=== PATIENT | female | born 1990 | race Caucasian/White ===

== ENCOUNTER 2018-03-03 08:53 | Inpatient (IN) ==
[2018-03-03 09:51] LABS: Baso # (Auto) 0.1 th/mm3 (0.0-0.2); Bilirubin,Urine Negative (Negative); Clarity,Urine Clear (Clear); Color,Urine Yellow (Yellw/Straw); Eos # (Auto) 0.1 th/mm3 (0.0-0.4); Eos % (Auto) 1.1 % (0.0-4.0); Glucose,Urine (UA) 50 mg/dL (Negative); Hematocrit 46.8 % (35.0-46.0); Leukocyte Esterase,Urine Negative (Negative); Lymph # (Auto) 1.7 th/mm3 (1.0-4.8); Lymph % (Auto) 25.3 % (9.0-44.0); Mean Corpuscular HGB Conc 34.2 % (32.0-36.0); Mean Corpuscular Hemoglobin 29.9 pg (27.0-34.0); Mean Corpuscular Volume 87.3 fL (80.0-100.0); Mean Platelet Volume 7.3 fL (7.0-11.0); Mono # (Auto) 0.3 th/mm3 (0.0-0.9); Mono % (Auto) 4.9 % (0.0-8.0); Neut # (Auto) 4.5 th/mm3 (1.8-7.7); Neut % (Auto) 67.7 % (16.0-70.0); Nitrite,Urine Negative (Negative); Platelet Count 394 th/mm3 (150-450); Red Blood Count 5.36 mil/mm3 (4.00-5.30); Red Cell Distribution Width 13.6 % (11.6-17.2); Specific Gravity,Urine 1.013 (1.002-1.035); Squamous Epithelial Cell,Urine 1 /hpf (0-5); White Blood Count 6.6 th/mm3 (4.0-11.0)
[2018-03-03 09:58] LABS: Amphetamine Screen,Urine Neg (Neg); Barbiturate Screen,Urine Neg (Neg); Cannabinoid Screen,Urine Neg (Neg); Cocaine Screen,Urine Neg (Neg)
[2018-03-03 09:59] LABS: Opiate Screen,Urine Neg (Neg)
[2018-03-03] MEDS ORDERED: Sod Chloride 0.9% Inj 1,000 ML IV.SIG ONE (10:12)
--- NOTE | 2018-03-03 10:18 | ED ---
HPI General Chief Complaint: Altered Mental Status Stated Complaint: ETOH Time Seen by Provider: 03/03/18 10:08 History of Present Illness HPI narrative: The patient was seen and examined in the presence of the nurse. This patient is brought in by her mother. The patient is an alcoholic with PTSD and anxiety problems. She expressed suicidal thoughts to her sister last night and then tried to drink herself to . The mother found her this morning minimally responsive. Mother is a nurse and is requesting and begging that I Randall act her for her own good so she can get some help. Symptoms are severe. The patient herself cannot provide any history or review of systems. She is too intoxicated at this point. Mother reports that she does not use drugs and is self. She had been clean for 7 months up until recently. There is a DCF case pending and her child has been taken away and the mother is caring for the child now. Related Data Home Medications Medication Instructions Recorded Confirmed levothyroxine [Synthroid] 100 mcg PO DAILY 02/08/18 02/08/18 Allergies Allergy/AdvReac Type Severity Reaction Status Date / Time latex Allergy Mild rash Verified 02/08/18 00:38 Sulfa (Sulfonamide Allergy Mild Migraine Verified 02/08/18 00:38 Antibiotics) nitrofurantoin Allergy Migraine Verified 02/08/18 00:38 [From Macrobid] Review of Systems ROS Unobtainable unobtainable due to mental condition and unobtainable due to mental status PMFSH Social History Social History Substance History: Unable to Obtain Second Hand Smoke Exposure: No Smoking Status: Cognitive impairment How Often Do You Have a Drink Containing Alcohol: Unable to Obtain Recent Travel in [facility] within the Last 8 Weeks: No Recent Out of Country Travel within the Last 8 Weeks: No Immunization History Tetanus Immunization: Unable to Assess Hx Influenza Vaccine This Season: Unable to Assess Exam Narrative Exam Narrative: GENERAL: Thin well-nourished, well-developed patient who has limited responsiveness . SKIN: Focused skin assessment reveals no rash and nodules. Skin is Warm and dry. HEAD: Atraumatic. Normocephalic. EYES: Pupils equal and round. No scleral icterus. No injection or drainage. ENT: No nasal bleeding or discharge. Mucous membranes pink and moist. Normal gag reflex. She is controlling airway. NECK: Trachea midline. No JVD. CARDIOVASCULAR: Regular rate and rhythm. No murmur appreciated. RESPIRATORY: No accessory muscle use. Clear to auscultation. Breath sounds equal bilaterally. GASTROINTESTINAL: Abdomen soft, non-tender, nondistended. Hepatic and splenic margins not palpable. MUSCULOSKELETAL: No obvious deformities. No clubbing. No cyanosis. No edema. NEUROLOGICAL: Awake but very obtunded. She looks around but is not follow commands. No obvious cranial nerve deficits. Impossible to accurately test motor strength or sensation. Nonverbal PSYCHIATRIC: Impossible to assess mood and affect; insight and judgment poor. Course Initial Documented Vital Signs Temperature 98.5 F 03/03/18 08:57 Pulse Rate 87 03/03/18 08:57 Respiratory Rate 18 03/03/18 08:57 Blood Pressure 120/86 03/03/18 08:57 Pulse Oximetry 98 03/03/18 08:57 Last Documented Vital Signs Temperature 98.5 F 03/03/18 08:57 Pulse Rate 94 H 03/03/18 11:52 Respiratory Rate 18 03/03/18 11:52 Blood Pressure 123/84 03/03/18 11:52 Pulse Oximetry 99 03/03/18 11:52 Critical Care Time Critical Care Time: Yes Total Critical Care Time: 35 Attestation: Aggregate critical care time was 35 minutes. Time to perform other separately billable procedures was not included in the critical care time. My time did not include minutes spent treating any other patients simultaneously or on activities that did not directly contribute to the patient's treatment. The services I provided to this patient were to treat and/or prevent clinically significant deterioration that could result in: Cardiac arrhythmia, cardiopulmonary arrest I provided critical care services requiring my management, as noted below: Chart data review, documentation time, medication orders and management, vital sign assessments/reviewing monitor data, ordering and reviewing lab tests, ordering and interpreting/reviewing x-rays and diagnostic studies, care of the patient and discussion of the patient with the admitting physicians. Medical Decision Making MDM Narrative Medical decision making narrative: IV placed and labs sent. I gave her a liter of saline IV bolus. I did place her under Randall act after lengthy discussion with mother. This does seem to be the best opportunity for to get some help. Psych screen has been ordered. Patient labs have come back. There many critical findings and she is very metabolically deranged. She has critical hyper natremia and critical hypokalemia. I have given her normal saline replacement and IV potassium replacement. I was planning on placing NG tube to put more liquid potassium down the tube but she is woken up a bit and that is going to be a challenge as she is very resistant to it. She was able to drink it without aspirating. So she has had oral replacement and IV replacement of potassium is ongoing. She will require medical admission to telemetry. I reviewed with the hospitalist She will get psychiatric consultation under Randall act. Differential Diagnosis Differential Diagnosis: Alcohol intoxication, intentional suicide attempt, depression Medical Records Medical records reviewed: Yes I reviewed the patient's medical records. Her last visit here was 2014 for alcohol intoxication Lab Data Result diagrams: 03/03/18 09:15 03/03/18 09:15 Lab Results 03/03/18 03/03/18 03/03/18 Range/Units 09:15 09:15 09:15 WBC 6.6 (4.0-11.0) th/mm3 RBC 5.36 H (4.00-5.30) mil/mm3 Hgb 16.0 H (11.6-15.3) gm/dL Hct 46.8 H (35.0-46.0) % MCV 87.3 (80.0-100.0) fL MCH 29.9 (27.0-34.0) pg MCHC 34.2 (32.0-36.0) % RDW 13.6 (11.6-17.2) % Plt Count 394 (150-450) th/mm3 MPV 7.3 (7.0-11.0) fL Neut % (Auto) 67.7 (16.0-70.0) % Lymph % (Auto) 25.3 (9.0-44.0) % [place] % (Auto) 4.9 (0.0-8.0) % Eos % (Auto) 1.1 (0.0-4.0) % Baso % (Auto) 1.0 (0.0-2.0) % Neut # (Auto) 4.5 (1.8-7.7) th/mm3 Lymph # (Auto) 1.7 (1.0-4.8) th/mm3 [place] # (Auto) 0.3 (0.0-0.9) th/mm3 Eos # (Auto) 0.1 (0.0-0.4) th/mm3 Baso # (Auto) 0.1 (0.0-0.2) th/mm3 WBC Differential . Differential Comment Auto diff final Puncture Site Patient Temperature O2 Saturation (90-100) % ABG pH (7.380-7.420) ABG pCO2 (38-42) mmHg ABG pO2 (61-120) mmHg ABG HCO3 (22-26) mmol/L ABG O2 Content (12.0-20.0) Vol % ABG Base Excess (-2-2) mmol/L ABG Methemoglobin (0-2) % José Miguel Test Hemoglobin (12.0-16.0) G/DL Carboxyhemoglobin (0-4) % O2 Delivery Device Inspired O2 % Critical Value Sodium 155 H (136-145) meq/L Potassium 1.6 L* (3.5-5.1) meq/L Chloride 128 H (98-107) meq/L Carbon Dioxide 17.5 L (21.0-32.0) meq/L Anion Gap 10 (5-15) meq/L BUN 8 (7-18) mg/dL Creatinine 0.20 L (0.50-1.00) mg/dL Estimated GFR Greater than 89 (>89) mL/min Random Glucose 57 L (74-106) mg/dL Calcium Less than 5.0 L* (8.5-10.1) mg/dL Prot Corrected Calcium 6.5 L* (8.5-10.1) mg/dL Total Bilirubin 0.2 (0.2-1.0) mg/dL AST 14 L (15-37) U/L ALT 17 (10-53) U/L Alkaline Phosphatase 36 L (45-117) U/L Total Protein 3.6 L (6.4-8.2) g/dL Albumin 1.9 L (3.4-5.0) g/dL Urine Color (Yellw/Straw) Urine Clarity (Clear) Urine pH (5.0-8.5) Ur Specific [place] (1.002-1.035) Urine Protein (Neg-Trace) mg/dL Urine Glucose (UA) (Negative) mg/dL Urine Ketones (Negative) mg/dL Urine Occult Blood (Negative) Urine Nitrate (Negative) Urine Bilirubin (Negative) Urine Urobilinogen (Less than 2) mg/dL Ur Leukocyte Esterase (Negative) Urine RBC (0-3) /hpf Urine WBC (0-5) /hpf Ur Squamous Epith Cells (0-5) /hpf Micro UA Comment Urine Culture Comments Salicylates (2.8-20.0) mg/dL Urine Opiates Screen Neg (Neg) Acetaminophen (10.0-30.0) mcg/mL Ur Barbiturates Screen Neg (Neg) Ur Amphetamines Screen Neg (Neg) U Benzodiazepines Scrn Neg (Neg) Urine Cocaine Screen Neg (Neg) U Cannabinoids Screen Neg (Neg) Serum Alcohol 296 H (0-5) mg/dL 03/03/18 03/03/18 03/03/18 Range/Units 09:15 09:15 09:15 WBC (4.0-11.0) th/mm3 RBC (4.00-5.30) mil/mm3 Hgb (11.6-15.3) gm/dL Hct (35.0-46.0) % MCV (80.0-100.0) fL MCH (27.0-34.0) pg MCHC (32.0-36.0) % RDW (11.6-17.2) % Plt Count (150-450) th/mm3 MPV (7.0-11.0) fL Neut % (Auto) (16.0-70.0) % Lymph % (Auto) (9.0-44.0) % [place] % (Auto) (0.0-8.0) % Eos % (Auto) (0.0-4.0) % Baso % (Auto) (0.0-2.0) % Neut # (Auto) (1.8-7.7) th/mm3 Lymph # (Auto) (1.0-4.8) th/mm3 [place] # (Auto) (0.0-0.9) th/mm3 Eos # (Auto) (0.0-0.4) th/mm3 Baso # (Auto) (0.0-0.2) th/mm3 WBC Differential Differential Comment Puncture Site Patient Temperature O2 Saturation (90-100) % ABG pH (7.380-7.420) ABG pCO2 (38-42) mmHg ABG pO2 (61-120) mmHg ABG HCO3 (22-26) mmol/L ABG O2 Content (12.0-20.0) Vol % ABG Base Excess (-2-2) mmol/L ABG Methemoglobin (0-2) % José Miguel Test Hemoglobin (12.0-16.0) G/DL Carboxyhemoglobin (0-4) % O2 Delivery Device Inspired O2 % Critical Value Sodium (136-145) meq/L Potassium (3.5-5.1) meq/L Chloride (98-107) meq/L Carbon Dioxide (21.0-32.0) meq/L Anion Gap (5-15) meq/L BUN (7-18) mg/dL Creatinine (0.50-1.00) mg/dL Estimated GFR (>89) mL/min Random Glucose (74-106) mg/dL Calcium (8.5-10.1) mg/dL Prot Corrected Calcium (8.5-10.1) mg/dL Total Bilirubin (0.2-1.0) mg/dL AST (15-37) U/L ALT (10-53) U/L Alkaline Phosphatase (45-117) U/L Total Protein (6.4-8.2) g/dL Albumin (3.4-5.0) g/dL Urine Color Yellow (Yellw/Straw) Urine Clarity Clear (Clear) Urine pH 6.0 (5.0-8.5) Ur Specific [place] 1.013 (1.002-1.035) Urine Protein Negative (Neg-Trace) mg/dL Urine Glucose (UA) 50 (Negative) mg/dL Urine Ketones Negative (Negative) mg/dL Urine Occult Blood Moderate H (Negative) Urine Nitrate Negative (Negative) Urine Bilirubin Negative (Negative) Urine Urobilinogen Less than 2 (Less than 2) mg/dL Ur Leukocyte Esterase Negative (Negative) Urine RBC 2 (0-3) /hpf Urine WBC 1 (0-5) /hpf Ur Squamous Epith Cells 1 (0-5) /hpf Micro UA Comment Cath-culture not ind Urine Culture Comments Cath-cult not ind Salicylates Less than 1.7 L (2.8-20.0) mg/dL Urine Opiates Screen (Neg) Acetaminophen 8.2 L (10.0-30.0) mcg/mL Ur Barbiturates Screen (Neg) Ur Amphetamines Screen (Neg) U Benzodiazepines Scrn (Neg) Urine Cocaine Screen (Neg) U Cannabinoids Screen (Neg) Serum Alcohol (0-5) mg/dL 03/03/18 Range/Units 11:59 WBC (4.0-11.0) th/mm3 RBC (4.00-5.30) mil/mm3 Hgb (11.6-15.3) gm/dL Hct (35.0-46.0) % MCV (80.0-100.0) fL MCH (27.0-34.0) pg MCHC (32.0-36.0) % RDW (11.6-17.2) % Plt Count (150-450) th/mm3 MPV (7.0-11.0) fL Neut % (Auto) (16.0-70.0) % Lymph % (Auto) (9.0-44.0) % [place] % (Auto) (0.0-8.0) % Eos % (Auto) (0.0-4.0) % Baso % (Auto) (0.0-2.0) % Neut # (Auto) (1.8-7.7) th/mm3 Lymph # (Auto) (1.0-4.8) th/mm3 [place] # (Auto) (0.0-0.9) th/mm3 Eos # (Auto) (0.0-0.4) th/mm3 Baso # (Auto) (0.0-0.2) th/mm3 WBC Differential Differential Comment Puncture Site Right radial Patient Temperature 98.6 O2 Saturation 95 (90-100) % ABG pH 7.43 H (7.380-7.420) ABG pCO2 41 (38-42) mmHg ABG pO2 92 (61-120) mmHg ABG HCO3 26 (22-26) mmol/L ABG O2 Content 21.0 H (12.0-20.0) Vol % ABG Base Excess 2.1 H (-2-2) mmol/L ABG Methemoglobin 0.7 (0-2) % José Miguel Test Present Hemoglobin 15.8 (12.0-16.0) G/DL Carboxyhemoglobin 1.3 (0-4) % O2 Delivery Device Room air Inspired O2 21 % Critical Value No Sodium (136-145) meq/L Potassium (3.5-5.1) meq/L Chloride (98-107) meq/L Carbon Dioxide (21.0-32.0) meq/L Anion Gap (5-15) meq/L BUN (7-18) mg/dL Creatinine (0.50-1.00) mg/dL Estimated GFR (>89) mL/min Random Glucose (74-106) mg/dL Calcium (8.5-10.1) mg/dL Prot Corrected Calcium (8.5-10.1) mg/dL Total Bilirubin (0.2-1.0) mg/dL AST (15-37) U/L ALT (10-53) U/L Alkaline Phosphatase (45-117) U/L Total Protein (6.4-8.2) g/dL Albumin (3.4-5.0) g/dL Urine Color (Yellw/Straw) Urine Clarity (Clear) Urine pH (5.0-8.5) Ur Specific [place] (1.002-1.035) Urine Protein (Neg-Trace) mg/dL Urine Glucose (UA) (Negative) mg/dL Urine Ketones (Negative) mg/dL Urine Occult Blood (Negative) Urine Nitrate (Negative) Urine Bilirubin (Negative) Urine Urobilinogen (Less than 2) mg/dL Ur Leukocyte Esterase (Negative) Urine RBC (0-3) /hpf Urine WBC (0-5) /hpf Ur Squamous Epith Cells (0-5) /hpf Micro UA Comment Urine Culture Comments Salicylates (2.8-20.0) mg/dL Urine Opiates Screen (Neg) Acetaminophen (10.0-30.0) mcg/mL Ur Barbiturates Screen (Neg) Ur Amphetamines Screen (Neg) U Benzodiazepines Scrn (Neg) Urine Cocaine Screen (Neg) U Cannabinoids Screen (Neg) Serum Alcohol (0-5) mg/dL Discharge Plan Discharge Disposition Patient Disposition: 30 Still Patient Discharge Details Diagnosis: Hypokalemia, Acute hypernatremia, Depression with suicidal ideation Physicians Team ED Provider: Lan Olson Primary Care Provider: Primary Care [place],No Other Providers: Ney Jackson Rxs /Orders / Referrals /Forms Prescriptions: No Action levothyroxine [Synthroid] 100 mcg Tablet 100 mcg PO DAILY RF: 0 Discharge Interventions Interventions: Vital Signs Last Done: 03/03/18 11:52 Status ED Status: With Doctor
[2018-03-03 10:30] LABS: Alanine Aminotransferase 17 U/L (10-53); Albumin 1.9 g/dL (3.4-5.0); Alkaline Phosphatase 36 U/L (45-117); Anion Gap 10 meq/L (5-15); Aspartate Aminotransferase 14 U/L (15-37); Blood Urea Nitrogen 8 mg/dL (7-18); Carbon Dioxide 17.5 meq/L (21.0-32.0); Chloride 128 meq/L (98-107); Glomerular Filtration Rate Greater Than 89 mL/min (>89); Glucose,Random 57 mg/dL (74-106); Sodium 155 meq/L (136-145); Total Protein 3.6 g/dL (6.4-8.2)
[2018-03-03 10:46] LABS: Alcohol 296 mg/dL (0-5); Potassium 1.6 meq/L (3.5-5.1)
[2018-03-03] MEDS ORDERED: Potassium Chloride 25 MEQ Effervescent Tablet NG/OG ONE (10:47)
[2018-03-03] MEDS ORDERED: Calcium Chloride Inj 1 GM/10 ML Syringe IV.PUSH ONE (11:21)
[2018-03-03 12:12] LABS: ABG Base Excess 2.1 mmol/L (-2-2); ABG PCO2 41 mmHg (38-42); ABG PO2 92 mmHg (61-120)
[2018-03-03] MEDS ORDERED: LORazepam 1 MG Tablet PO PRN (13:08)
[2018-03-03] MEDS ORDERED: Calcium Chloride Inj 1 GM in Sodium Chlor 0.9% Inj 100 ML IV.SIG ONE (14:00)
--- NOTE | 2018-03-03 16:12 | P.HPIM ---
History of Present Illness Primary Care Physician: No Primary Care Physician Chief Complaint: Binge drinking History of Present Illness: The patient is a 27-year-old female with a past medical history of anxiety and depression who is presenting to the hospital following an episode of binge drinking. The patient's mother found her daughter to be altered and brought her into the hospital for further evaluation. The patient says that yesterday her sister's try to force himself on her. She was able to stop that from happening. She said that she started drinking in response to that. She says she had 10 shots of 99 proof alcohol. She denied drinking anything else. She denied taking any other substances. She says she was drinking at home. She has a son who was with her mother at the time. Apparently the patient told her sister that she was going to kill herself. The patient denies being serious about it. She says she is not crazy. She denies any prior suicidal ideation or attempts. She states she has had alcohol withdrawal before in the past. She says she is a binge drinker but not a daily drinker. She does endorse palpitations from time to time. She is currently nauseous and not hungry. Inpatient Certification: I certify that the inpatient services were ordered in accordance with Medicare regulations governing the order. This includes certification that hospital inpatient services are reasonable and necessary and in the case of services not specified as inpatient-only under 42 CFR 419.22(n), that they are appropriately provided as inpatient services in accordance to with the 2-midnight benchmark under 43 CFR 412.3(e) Estimated Total Length of Stay (Days): 2 Plans for Post Hospital Care: Not yet determined Review of Systems All other systems reviewed negative except as stated in HPI [facility] / [facility] - History History Provided By: Air Plant Engineer / EMT - Medical History Medical History: Medical History (Last Updated 03/03/18 @ 16:02 by Juaquin Reyes DO) [place] teeth extracted Anxiety Depression Hypothyroid - Family History Family History: Family History (Last Updated 03/03/18 @ 16:02 by Juaquin Reyes DO) Other Atrial fibrillation - Tobacco History Second Hand Smoke Exposure: No Smoking Status: Never smoker - Alcohol History How Often Do You Have a Drink Containing Alcohol: 2 to 3 times a week - Substance Use History Substance History: No History of Abuse - Travel History Recent Travel in the [facility] Within the Last 8 Weeks: No Recent Travel Out of the Country Within the Last 8 Weeks: No - Immunization History Tetanus Immunization: Unable to Assess Hx Influenza Vaccine This Season: Unable to Assess Medications and Allergies Active Medications: Active Medications Flumazenil (Romazecon Inj) 0.2 mg IV.PUSH Q1M PRN PRN Reason: OVERSEDATION Potassium Chloride 40 meq/ (Dextrose) 1,020 mls @ 125 mls/hr IV.CONT .Q8H10M [place] Lorazepam (Ativan) 1 mg PO Q4H PRN PRN Reason: for CIWA 8-10 Lorazepam (Ativan) 2 mg PO Q2H PRN PRN Reason: for CIWA 11-14 Lorazepam (Ativan Inj) 2 mg IV.PUSH Q1H PRN PRN Reason: for CIWA 15-20 Lorazepam (Ativan Inj) 2 mg IV.PUSH Q15M PRN PRN Reason: for CIWA > 20 Metoclopramide HCl (Reglan Inj) 5 mg IV.PUSH Q8HR PRN; Protocol PRN Reason: n/v Last Admin: 03/03/18 14:57 Dose: 5 mg Ondansetron HCl (Zofran Odt) 4 mg PO Q6H PRN PRN Reason: BREAKTHROUGH NAUSEA Allergies Allergy/AdvReac Type Severity Reaction Status Date / Time latex Allergy Mild rash Verified 02/08/18 00:38 Sulfa (Sulfonamide Allergy Mild Migraine Verified 02/08/18 00:38 Antibiotics) nitrofurantoin Allergy Migraine Verified 02/08/18 00:38 [From Macrobid] Home Medications Medication Instructions Recorded Confirmed Type levothyroxine [Synthroid] 100 mcg PO DAILY 02/08/18 02/08/18 History Exam Vital signs: Vital Signs 03/03/18 08:57 03/03/18 09:02 03/03/18 09:06 Temperature 98.5 F Pulse Rate 87 101 H 98 H Respiratory Rate 18 16 Blood Pressure 120/86 132/88 Pulse Oximetry 98 97 99 03/03/18 11:52 Temperature Pulse Rate 94 H Respiratory Rate 18 Blood Pressure 123/84 Pulse Oximetry 99 Intake & Output 03/02/18 03/03/18 03/03/18 18:59 06:59 18:59 Weight 52.163 kg Narrative: GENERAL: Thin well-nourished, well-developed patient in no apparent distress. SKIN: Warm and dry. HEAD: Atraumatic. Normocephalic. EYES: Pupils equal and round. No scleral icterus. No injection or drainage. ENT: No nasal bleeding or discharge. Mucous membranes pink and moist. NECK: Trachea midline. No JVD. CARDIOVASCULAR: Regular rate and rhythm. No murmur appreciated. RESPIRATORY: No accessory muscle use. Clear to auscultation. Breath sounds equal bilaterally. GASTROINTESTINAL: Abdomen soft, non-tender, nondistended. Hepatic and splenic margins not palpable. MUSCULOSKELETAL: No obvious deformities. No clubbing. No cyanosis. No edema. NEUROLOGICAL: Awake and alert. No gross deficits. Results - Labs CBC & Chem 7: 03/03/18 09:15 03/03/18 09:15 Labs: Short CBC 03/03/18 Range/Units 09:15 WBC 6.6 (4.0-11.0) th/mm3 Hgb 16.0 H (11.6-15.3) gm/dL Hct 46.8 H (35.0-46.0) % Plt Count 394 (150-450) th/mm3 BMP 03/03/18 09:15 Sodium 155 H Potassium 1.6 L* Chloride 128 H Carbon Dioxide 17.5 L BUN 8 Creatinine 0.20 L Calcium Less than 5.0 L* Liver Function 03/03/18 Range/Units 09:15 Total Bilirubin 0.2 (0.2-1.0) mg/dL AST 14 L (15-37) U/L ALT 17 (10-53) U/L Alkaline Phosphatase 36 L (45-117) U/L Albumin 1.9 L (3.4-5.0) g/dL Urine 03/03/18 Range/Units 09:15 Urine Color Yellow (Yellw/Straw) Urine Clarity Clear (Clear) Urine pH 6.0 (5.0-8.5) Ur Specific [place] 1.013 (1.002-1.035) Urine Protein Negative (Neg-Trace) mg/dL Urine Glucose (UA) 50 (Negative) mg/dL Caprini VTE Risk Assessment Caprini VTE Risk Assessment: Moderate/High Risk (score >= 2) Caprini Risk Assessment Model: Point Value = 1 Point Value = 2 Point Value = 3 Point Value = 5 Age 41-60 Minor surgery BMI > 25 kg/m2 Swollen legs Varicose veins or History of unexplained or recurrent spontaneous Oral contraceptives or hormone replacement Sepsis (< 1 month) Serious lung disease, including pneumonia (< 1 month) Abnormal pulmonary function Acute myocardial infarction Congestive heart failure (< 1 month) History of inflammatory bowel disease Medical patient at bed rest Age 61-74 Arthroscopic surgery Major open surgery (> 45 min) Laparoscopic surgery (> 45 min) Malignancy Confined to bed (> 72 hours) Immobilizing plaster cast Central venous access Age >= 75 History of VTE Family history of VTE Factor V Leiden Prothrombin [id number] Lupus anticoagulant Anticardiolipin antibodies Elevated serum homocysteine Heparin-induced thrombocytopenia Other congenital or acquired thrombophilia Stroke (< 1 month) Elective arthroplasty Hip, pelvis, or leg fracture Acute spinal cord injury (< 1 month) Prophylaxis Regimen: Total Risk Factor Score Risk Level Prophylaxis Regimen 0-1 Low Early ambulation 2 Moderate Order ONE of the following: *Sequential Compression Device (SCD) *Heparin 5000 units SQ BID 3-4 Higher Order ONE of the following medications: *Heparin 5000 units SQ TID *Enoxaparin/Lovenox 40 mg SQ daily (WT < 150 kg, CrCl > 30 mL/min) *Enoxaparin/Lovenox 30 mg SQ daily (WT < 150 kg, CrCl > 10-29 mL/min) *Enoxaparin/Lovenox 30 mg SQ BID (WT < 150 kg, CrCl > 30 mL/min) AND/OR *Sequential Compression Device (SCD) 5 or more Highest Order ONE of the following medications: *Heparin 5000 units SQ TID (Preferred with Epidurals) *Enoxaparin/Lovenox 40 mg SQ daily (WT < 150 kg, CrCl > 30 mL/min) *Enoxaparin/Lovenox 30 mg SQ daily (WT < 150 kg, CrCl > 10-29 mL/min) *Enoxaparin/Lovenox 30 mg SQ BID (WT < 150 kg, CrCl > 30 mL/min) AND *Sequential Compression Device (SCD) Assessment and Plan - Plan Alcohol abuse The pt states that she binge drinks from time to time. She has a history of alcohol withdrawal. -CIWA protocol. -Cessation instruction. -Seizure precautions. -Case management consult. Suicidal ideation The pt's mother was concerned that the pt was drinking herself to . The pt also told her sister that she was suicidal. The pt was Prakash Acted in the ED. -Psychiatry consult pending. -Hold home Wellbutrin for now. Severe electrolyte derangements S/t above. Potassium was 1.6 on admission. She received IV and PO repletion in the ED. -D5W with KCl. -Calcium chloride IV. -Check mg and phos levels. -Follow BMP. -Telemetry. Polycythemia Likely s/t dehydration. -IVFs and monitor. Hypothyroidism On levothyroxine as an outpt. -Resume levothyroxine. -Check TSH. PPx: SCDs
--- NOTE | 2018-03-03 21:28 | ECG ---
Date Performed: 03/03/2018 Time Performed: 10:56:49 PTAGE: 27 years EKG: Sinus rhythm NORMAL ECG NO PREVIOUS TRACING DOCTOR: Jorge Lund Interpretating Date/Time 03/03/2018 21:27:04
[2018-03-04 00:47] LABS: Anion Gap 12 meq/L (5-15); Blood Urea Nitrogen 10 mg/dL (7-18); Carbon Dioxide 21.2 meq/L (21.0-32.0); Chloride 105 meq/L (98-107); Glomerular Filtration Rate Greater Than 89 mL/min (>89); Glucose,Random 93 mg/dL (74-106); Magnesium 1.3 mg/dL (1.5-2.5); Phosphorus 2.8 mg/dL (2.5-4.9); Potassium 3.8 meq/L (3.5-5.1); Sodium 138 meq/L (136-145)
[2018-03-04] MEDS: Potassium Chloride Inj 40 MEQ in Dextrose 5% in Water Inj 1,000 ML IV.CONT SCH ×4 (03:09)
[2018-03-04 07:20] LABS: Baso # (Auto) 0.1 th/mm3 (0.0-0.2); Baso % (Auto) 0.7 % (0.0-2.0); Eos # (Auto) 0.1 th/mm3 (0.0-0.4); Eos % (Auto) 0.6 % (0.0-4.0); Hematocrit 37.4 % (35.0-46.0); Hemoglobin 13.1 gm/dL (11.6-15.3); Lymph # (Auto) 0.9 th/mm3 (1.0-4.8); Lymph % (Auto) 10.4 % (9.0-44.0); Mean Corpuscular Hemoglobin 30.4 pg (27.0-34.0); Mean Corpuscular Volume 86.8 fL (80.0-100.0); Mean Platelet Volume 7.5 fL (7.0-11.0); Mono # (Auto) 0.5 th/mm3 (0.0-0.9); Mono % (Auto) 5.5 % (0.0-8.0); Neut # (Auto) 7.3 th/mm3 (1.8-7.7); Neut % (Auto) 82.8 % (16.0-70.0); Platelet Count 296 th/mm3 (150-450); Red Blood Count 4.31 mil/mm3 (4.00-5.30); Red Cell Distribution Width 13.3 % (11.6-17.2); White Blood Count 8.9 th/mm3 (4.0-11.0)
[2018-03-04 07:26] LABS: INR 1.1 Ratio; Prothrombin Time 11.4 sec (9.8-11.6)
[2018-03-04 08:16] LABS: Alanine Aminotransferase 27 U/L (10-53); Albumin 3.6 g/dL (3.4-5.0); Alkaline Phosphatase 67 U/L (45-117); Anion Gap 10 meq/L (5-15); Aspartate Aminotransferase 22 U/L (15-37); Blood Urea Nitrogen 10 mg/dL (7-18); Calcium 8.7 mg/dL (8.5-10.1); Carbon Dioxide 24.4 meq/L (21.0-32.0); Chloride 103 meq/L (98-107); Glomerular Filtration Rate Greater Than 89 mL/min (>89); Glucose,Random 106 mg/dL (74-106); Lipase 145 U/L (73-393); Potassium 3.7 meq/L (3.5-5.1); Sodium 137 meq/L (136-145); Total Protein 6.5 g/dL (6.4-8.2)
[2018-03-04] MEDS: Dextrose 5%/NaCl 0.9% Inj 1,000 ML IV.CONT SCH ×2 (12:04→23:57)
[2018-03-04] MEDS: Mag Sulf 1 gm/100 ml Premix 100 ML IV.SIG SCH ×2 (12:04→14:48)
[2018-03-04] MEDS ORDERED: LORazepam 1 MG Tablet PO ONE (13:33)
--- NOTE | 2018-03-04 13:44 | P.PNIM ---
Subjective Interval history: The patient's mother was at the bedside. The patient reports vomiting a few times. She does not have much of an appetite. She denies any abdominal pain. She does not feel shaky. She has been ambulating to the bathroom and feels a little weak and unsteady when she does that. She is interested in going to rehab. Discussed with nursing and case management. Physical Exam Vital signs: Vital Signs 03/03/18 16:09 03/03/18 20:00 03/04/18 00:00 Temperature 98.6 F 98.4 F Pulse Rate 83 98 H 94 H Respiratory Rate 18 17 17 Blood Pressure 131/83 127/67 114/63 Pulse Oximetry 99 99 98 03/04/18 04:00 03/04/18 07:11 Temperature 98.8 F Pulse Rate 103 H Respiratory Rate 17 Blood Pressure 118/65 Pulse Oximetry 99 98 Intake & Output 03/03/18 03/04/18 03/04/18 18:59 06:59 18:59 Weight 52.163 kg 52.1 kg Other: # Voids 2 Date of Last Bowel Movement 03/03/18 03/03/18 Narrative: GENERAL: Thin well-nourished, well-developed patient in no apparent distress. SKIN: Warm and dry. HEAD: Atraumatic. Normocephalic. EYES: Pupils equal and round. No scleral icterus. No injection or drainage. ENT: No nasal bleeding or discharge. Mucous membranes pink and moist. NECK: Trachea midline. No JVD. CARDIOVASCULAR: Regular rate and rhythm. No murmur appreciated. RESPIRATORY: No accessory muscle use. Clear to auscultation. Breath sounds equal bilaterally. GASTROINTESTINAL: Abdomen soft, non-tender, nondistended. Hepatic and splenic margins not palpable. MUSCULOSKELETAL: No obvious deformities. No clubbing. No cyanosis. No edema. NEUROLOGICAL: Awake and alert. No gross deficits. - Urinary Catheter Management Straight Cath placed during this visit: yes Reason for continuing: Not indwelling catheter Insertion date: 03/03/18 Insertion time: 09:06 Results - Labs CBC & Chem 7: 03/04/18 06:31 03/04/18 06:31 Laboratory Results - last 24 hr 03/03/18 03/04/18 03/04/18 23:58 01:13 06:31 WBC 8.9 RBC 4.31 Hgb 13.1 D Hct 37.4 MCV 86.8 MCH 30.4 MCHC 35.0 RDW 13.3 Plt Count 296 MPV 7.5 Neut % (Auto) 82.8 H Lymph % (Auto) 10.4 [place] % (Auto) 5.5 Eos % (Auto) 0.6 Baso % (Auto) 0.7 Neut # (Auto) 7.3 Lymph # (Auto) 0.9 L [place] # (Auto) 0.5 Eos # (Auto) 0.1 Baso # (Auto) 0.1 WBC Differential . Differential Comment Auto diff final PT INR Sodium 138 D Potassium 3.8 D Chloride 105 D Carbon Dioxide 21.2 Anion Gap 12 BUN 10 Creatinine 0.57 Estimated GFR Greater than 89 POC Glucose 97 Random Glucose 93 Calcium 8.0 L D Phosphorus 2.8 Magnesium 1.3 L Total Bilirubin AST ALT Alkaline Phosphatase Total Protein Albumin Lipase TSH 5.520 H 03/04/1818 06:31 06:31 WBC RBC Hgb Hct MCV MCH MCHC RDW Plt Count MPV Neut % (Auto) Lymph % (Auto) [place] % (Auto) Eos % (Auto) Baso % (Auto) Neut # (Auto) Lymph # (Auto) [place] # (Auto) Eos # (Auto) Baso # (Auto) WBC Differential Differential Comment PT 11.4 INR 1.1 Sodium 137 Potassium 3.7 Chloride 103 Carbon Dioxide 24.4 Anion Gap 10 BUN 10 Creatinine 0.67 Estimated GFR Greater than 89 POC Glucose Random Glucose 106 Calcium 8.7 Phosphorus Magnesium Total Bilirubin 1.2 H AST 22 ALT 27 Alkaline Phosphatase 67 Total Protein 6.5 D Albumin 3.6 D Lipase 145 TSH Assessment and Plan - Plan Alcohol abuse The pt states that she binge drinks from time to time. She has a history of alcohol withdrawal. -CIWA protocol. Ativan 1 mg PO x 1 now. -Cessation instruction. -Seizure precautions. -Case management consult appreciated. The pt would like information on rehab. Suicidal ideation The pt's mother was concerned that the pt was drinking herself to . The pt also told her sister that she was suicidal. The pt was Prakash Acted in the ED. Psychiatry lifted the Randall Act. -Psychiatry following. Will need outpt follow-up. -Hold home Wellbutrin for now as pt has a history of seizures related to alcohol withdrawal. Severe electrolyte derangements S/t above. Potassium was 1.6 on admission. She received IV and PO repletion in the ED. She also received IV magnesium. Resolved overnight. -D5NS. -Calcium chloride IV. -Follow BMP. -Telemetry. Elevated LFTs Total bilirubin is 1.2. S/t alcohol abuse. -trend LFTs. Hypothyroidism On levothyroxine as an outpt. TSH was 5.52. -Resume levothyroxine. PPx: SCDs Discharge Planning: Anticipate d/c home in AM
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
[2018-03-05 04:29] VITALS: RESP 16; O2SAT 98
[2018-03-05] MEDS: Dextrose 5%/NaCl 0.9% Inj 1,000 ML IV.CONT SCH (05:33)
[2018-03-05] MEDS ORDERED: Levothyroxine 100 MCG Tablet PO SCH (06:00)
[2018-03-05 08:59] LABS: Albumin 3.4 g/dL (3.4-5.0); Anion Gap 8 meq/L (5-15); Aspartate Aminotransferase 17 U/L (15-37); Blood Urea Nitrogen 6 mg/dL (7-18); Calcium 8.5 mg/dL (8.5-10.1); Carbon Dioxide 24.3 meq/L (21.0-32.0); Chloride 106 meq/L (98-107); Glomerular Filtration Rate Greater Than 89 mL/min (>89); Glucose,Random 94 mg/dL (74-106); Magnesium 2.1 mg/dL (1.5-2.5); Potassium 3.4 meq/L (3.5-5.1); Sodium 138 meq/L (136-145)
[2018-03-05 09:02] LABS: Alanine Aminotransferase 21 U/L (10-53); Alkaline Phosphatase 70 U/L (45-117); Total Protein 6.4 g/dL (6.4-8.2)
--- NOTE | 2018-03-05 10:15 | P.PNIM ---
Subjective Interval history: The pt was feeling well. She was not shaky. She said she will abstain from alcohol. She denied any acute complaints. Physical Exam Vital signs: Vital Signs 03/04/18 12:00 03/04/18 16:00 03/04/18 18:21 Temperature 98.6 F 98.4 F Pulse Rate 79 92 H 92 H Respiratory Rate 16 16 Blood Pressure 128/74 124/74 Pulse Oximetry 98 99 03/04/18 20:00 03/05/18 00:00 03/05/18 04:00 Temperature 99.0 F 98.9 F 98.5 F Pulse Rate 90 85 80 Respiratory Rate 18 17 16 Blood Pressure 138/83 128/73 124/70 Pulse Oximetry 96 99 98 Intake & Output 03/04/18 03/05/18 03/05/18 18:59 06:59 18:59 Intake Total 820 / 820 1000 / 1000 Balance 820 / 820 1000 / 1000 Weight 52.1 kg Intake: IV 100 / 100 1000 / 1000 D5W/Normal Saline Inj 1,000 ML 1000 / 1000 @ 100 mls/hr IV.CONT .Q10H [facility] Rx#:[id number] Magnesium Sulfate 1 gm/D5W 100 100 / 100 ml Premix 100 ML @ 100 mls/hr IV.SIG Q1H [facility] Rx#:[id number] Oral 720 / 720 Other: Post Void Residual 200 # Voids 720 2 Date of Last Bowel Movement 03/03/18 03/05/18 # Bowel Movements 1 Narrative: GENERAL: Thin well-nourished, well-developed patient in no apparent distress. SKIN: Warm and dry. HEAD: Atraumatic. Normocephalic. EYES: Pupils equal and round. No scleral icterus. No injection or drainage. ENT: No nasal bleeding or discharge. Mucous membranes pink and moist. NECK: Trachea midline. No JVD. CARDIOVASCULAR: Regular rate and rhythm. No murmur appreciated. RESPIRATORY: No accessory muscle use. Clear to auscultation. Breath sounds equal bilaterally. GASTROINTESTINAL: Abdomen soft, non-tender, nondistended. Hepatic and splenic margins not palpable. MUSCULOSKELETAL: No obvious deformities. No clubbing. No cyanosis. No edema. NEUROLOGICAL: Awake and alert. No gross deficits. - Urinary Catheter Management Straight Cath placed during this visit: yes Reason for continuing: Not indwelling catheter Insertion date: 03/03/18 Insertion time: 09:06 Results - Labs CBC & Chem 7: 03/04/18 06:31 03/05/18 07:02 Laboratory Results - last 24 hr 03/04/18 03/04/18 03/05/18 17:27 22:13 06:51 Sodium Potassium Chloride Carbon Dioxide Anion Gap BUN Creatinine Estimated GFR POC Glucose 120 H 118 H 96 Random Glucose Calcium Magnesium Total Bilirubin Direct Bilirubin Indirect Bilirubin AST ALT Alkaline Phosphatase Total Protein Albumin 03/05/18 07:02 Sodium 138 Potassium 3.4 L Chloride 106 Carbon Dioxide 24.3 Anion Gap 8 BUN 6 L Creatinine 0.54 Estimated GFR Greater than 89 POC Glucose Random Glucose 94 Calcium 8.5 Magnesium 2.1 D Total Bilirubin 1.1 H Direct Bilirubin 0.3 H Indirect Bilirubin 0.8 AST 17 ALT 21 Alkaline Phosphatase 70 Total Protein 6.4 Albumin 3.4 Assessment and Plan - Plan Alcohol abuse The pt states that she binge drinks from time to time. She has a history of alcohol withdrawal. -CIWA protocol. Librium as needed upon discharge. -Cessation instruction. -Seizure precautions. -Case management consult appreciated. Jose recommended. Suicidal ideation The pt's mother was concerned that the pt was drinking herself to . The pt also told her sister that she was suicidal. The pt was Randall Acted in the ED. Psychiatry lifted the Randall Act. -Psychiatry following. Will need outpt follow-up. -d/c Wellbutrin as pt has a history of seizures related to alcohol withdrawal. Severe electrolyte derangements S/t above. Potassium was 1.6 on admission. She received IV and PO repletion in the ED. She also received IV magnesium. Resolved overnight. -D5NS. -Calcium chloride IV. -Follow BMP. -Telemetry. - d/c with KCl supplementation. Elevated LFTs Total bilirubin is 1.2. S/t alcohol abuse. -trend LFTs. Hypothyroidism On levothyroxine as an outpt. TSH was 5.52. -Resume levothyroxine. PPx: SCDs Discharge Planning: Anticipate d/c home in AM
[2018-03-05 10:42] VITALS: BP 130/85; TEMP 98.1
[2018-03-05 12:41] VITALS: PULSE 69
== END 2018-03-05 14:17 | disposition home or self-care (01) ==
LOC: NEPE 08:53 → NEDA 13:36 → N06 18:19
PROVIDERS: ADMIT Hospitalist; ATTEND Hospitalist